=== PATIENT | male | born 2000 | race African-American/Black ===

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

== ENCOUNTER 2018-03-19 13:34 | Emergency (ER) | payer MEDICAID ==
[~2018-03-19] VITALS: Ht 182.9 cm; Wt 72.6 kg
[2018-03-19] MEDS ORDERED: KETOROLAC 30 MG/1 ML ONE (14:09)
[2018-03-19] MEDS ORDERED: KETOROLAC 30 MG/1 ML IM ONE (14:30)
[2018-03-19 14:35] LABS: BASOPHILS # (AUTO) 0.02 x10^3/uL (0-0.3); BASOPHILS % (AUTO) 0 % (0-1); EOSINOPHILS # (AUTO) 0.18 x10^3/uL (0-0.8); EOSINOPHILS % (AUTO) 2 % (1-7); LYMPHOCYTES # (AUTO) 0.75 x10^3/uL (1-6.1); LYMPHOCYTES % (AUTO) 9 % (22-44); MD NO; MEAN CORPUSCULAR HEMOGLOBIN 28.2 pg (27.5-34.5); MEAN CORPUSCULAR HGB CONC 32.8 g/dL (33.2-36.2); MEAN CORPUSCULAR VOLUME 86.1 fL (81-97); MEAN PLATELET VOLUME 7.1 fL (7.4-10.4); MONOCYTES # (AUTO) 0.66 x10^3/uL (0-1.4); MONOCYTES % (AUTO) 8 % (2-9); NEUTROPHILS # (AUTO) 6.66 x10^3/uL (1.8-8.0); NEUTROPHILS % (AUTO) 81 % (42-75); PLATELET COUNT 253 x10^3/uL (130-400); RED BLOOD COUNT 5.12 x10^6/uL (4.38-5.82); RED CELL DISTRIBUTION WIDTH 12.6 % (9.4-14.8)
[2018-03-19 14:46] LABS: ALBUMIN 3.9 g/dL (3.4-5.0); ANION GAP 6 mmol/L (5-15); CALCIUM 8.7 mg/dL (8.5-10.1); CHLORIDE 108 mmol/L (98-107)
[2018-03-19 14:49] VITALS: BP 112/61
[2018-03-19 14:52] LABS: CREATININE 1.01 mg/dL (0.7-1.3); TROPONIN I < 0.015 ng/mL (0.000-0.045)
== END 2018-03-19 15:37 | disposition home or self-care (01) ==
LOC: ED 15:00
DX: J02.8 Acute pharyngitis due to other specified organisms (principal); J20.8 Acute bronchitis due to other specified organisms; J01.00 Acute maxillary sinusitis, unspecified; B97.89 Other viral agents as the cause of diseases classified elsewhere; G43.909 Migraine, unspecified, not intractable, without status migrainosus; Z87.891 Personal history of nicotine dependence
CPT/HCPCS: 36415; 71046; 80048; 82040; 84484; 85025; 93005; 96372; 99285; J1885

== ENCOUNTER 2021-01-08 00:30 | Emergency (ER) | payer SELFPAY ==
[~2021-01-08] VITALS: Ht 188 cm; Wt 70.8 kg
[2021-01-08 02:41] VITALS: BP 127/81
[2021-01-08 02:55] LABS: MICROSCOPIC INDICATED
--- NOTE | 2021-01-08 03:03 | NUR ---
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
[2021-01-08] MEDS ORDERED: DOXYCYCLINE 100MG TABLET PO ONE (03:30)
[2021-01-08] MEDS ORDERED: CEFTRIAXONE 1,000 MG IM ONE (03:30)
[2021-01-08] MEDS ORDERED: CEFTRIAXONE 1,000 MG ONE (03:34)
[2021-01-08] MEDS ORDERED: DOXYCYCLINE 100MG TABLET ONE (03:34)
--- NOTE | 2021-01-08 03:43 | NUR ---
Patient given discharge instructions and they have confirmed that they understand the instructions. Patient ambulatory with steady gait. NAD, all questions answered appropriately, denies additional needs at this time. No personal belongings left in room after discharge.
== END 2021-01-08 03:55 | disposition home or self-care (01) ==
LOC: ED 03:49
DX: N34.2 Other urethritis (principal); R30.0 Dysuria
CPT/HCPCS: 81001; 87086; 87491; 87591; 96372; 99283; J0696